=== PATIENT | female | born 1950 | race Caucasian/White ===

== ENCOUNTER 2017-09-05 09:00 | Outpatient (CLI) | payer BC, MEDICARE ==
--- NOTE | 2017-09-05 12:03 | ULT ---
RIGHT UPPER QUADRANT ULTRASOUND: INDICATIONS: Elevated liver enzymes with a history of a cholecystectomy, a total hysterectomy, and an appendectomy . FINDINGS: No focal hepatic lesion is evident. The visualized aspects of the pancreas are unremarkable. The gallbladder is surgically absent. The common bile duct measures 1.8 mm. The right kidney measures 9.7 x 4.8 x 4.5 cm. No focal renal lesion or hydronephrosis is evident. IMPRESSION: No acute abnormality. POS: JULIET
== END 2017-09-05 09:01 | disposition home or self-care (01) ==
LOC: MADULT 09:00
PROVIDERS: ATTEND Family Medicine
DX: K76.89 Other specified diseases of liver (principal)
CPT/HCPCS: 76705

== ENCOUNTER 2021-01-04 16:29 | Outpatient (CLI) | payer MEDICARE | END 2021-01-04 16:30 | disposition home or self-care (01) | LOC: MADLAB 16:29 | PROVIDERS: ATTEND Internal Medicine | DX: N39.0 Urinary tract infection, site not specified (principal) | CPT/HCPCS: 87077; 87086; 87186 ==